=== PATIENT | female | born 1985 | race Caucasian/White ===

== ENCOUNTER → 2021-03-22 | Day surgery (SDC) | payer OTHER ==
[~2021-03-22] VITALS: Ht 165.1 cm; Wt 79.0 kg
[~2021-03-22] MED LIST: ASHW300C PO; BUSP30TA PO; FAMO40TA4 PO; IV RINGERS,LACTATED 1000ML 1,000 ML IV SCH; LIDOCAINE 2% PF 5 ML VIAL. ONE; PROPOFOL 10 MG/ML (20ML) VIAL. IV ONE
[2021-03-22 06:24] VITALS: BP 104/67
[2021-03-22 08:09] VITALS: BP 103/58
--- NOTE | 2021-03-25 14:07 | PATHOLOGY ---
[facility] Accession Number: [id number] . 01 Material submitted: . PART A: duodenum - DUODENAL BIOPSY PART B: colon - RANDOM COLON BIOPSY . 01 Clinical history: . ABD PAIN/DIARRHEA FAMILY HX CELIAC EGD/COLON . 02 Diagnosis: A. Duodenal biopsy: - No significant pathologic abnormalities. . B. Colonic mucosa, random colon biopsies: - No significant pathologic abnormalities. . (JPM:michele; 03/25/2021) MBR 03/25/2021 1209 Local . 02 Comment: Sections of the duodenal biopsy reveal multiple segments of duodenal and small intestine mucosa. Where best oriented, the mucosal villi show no sprue-like changes or significant inflammatory changes. . Sections of the random colon biopsy reveal multiple segments of colonic mucosa containing multiple scattered mucosal-associated lymphoid aggregates. There is no evidence of an active chronic destructive colitis, lymphocytic colitis, or collagenous colitis. . (JPM:michele; 03/25/2021) . 02 Electronically signed: . Thomas Angel MD, Pathologist NPI- [id number] . 01 Gross description: . A. The specimen is received in formalin, labeled "Lorena Mensah, duodenal BX". It consists of multiple cordova irregular soft tissue fragments measuring 1.2 x 0.6 x 0.2 cm. The specimen is entirely submitted between sponges in A1. . B. The specimen is received in formalin, labeled "Lorena Mensah, random colon BX". It consists of multiple cordova irregular soft tissue fragments measuring 1.5 x 1.5 x 0.2 cm in aggregate. The specimen is entirely submitted between sponges in B1. (MRF; 03/22/2021) MFE/MFE 03/25/2021 1206 Local . 02 Pathologist provided ICD-10: R10.9, R19.7, Z84.89 . 02 CPT . 967217, [id number] Specimen Comment: A courtesy copy of this report has been sent to [phone] Specimen Comment: Report sent to DR. CORREA Performed at: [address], [place] [id number] MD Santana Ceron MD Phone: [phone] [facility]formed [facility] [address] [place], [place] [id number] MD Thomas Angel MD Phone: [phone]
== END | disposition home or self-care (01) ==
LOC: ENDOS 06:01
PROVIDERS: ATTEND Internal Medicine Gastroenterology
DX: R19.7 Diarrhea, unspecified (principal); K64.0 First degree hemorrhoids; R10.84 Generalized abdominal pain; K63.89 Other specified diseases of intestine; K31.89 Other diseases of stomach and duodenum; K21.9 Gastro-esophageal reflux disease without esophagitis; F41.9 Anxiety disorder, unspecified; F32.9 Major depressive disorder, single episode, unspecified; Z84.89 Family history of other specified conditions; Z79.899 Other long term (current) drug therapy; Z98.890 Other specified postprocedural states; Z88.8 Allergy status to other drugs, medicaments and biological substances
CPT/HCPCS: 43239; 45380; 81025; J2704; 88305